=== PATIENT | female | born 1980 | race Caucasian/White ===

== ENCOUNTER 2017-10-04 15:18 | Emergency (ER) | payer OTHER ==
[2017-10-04] MEDS ORDERED: predniSONE 20 MG Tab PO ONE (16:05)
[2017-10-04] MEDS ORDERED: diphenhydrAMINE 50 MG Cap PO ONE (16:05)
[2017-10-04] MEDS ORDERED: Famotidine 20 MG Tab PO ONE (16:05)
--- NOTE | 2017-10-04 16:13 | EDM.PDOC ---
ED HPI GENERAL MEDICAL PROBLEM - General Chief Complaint: Skin Complaint Stated Complaint: COVERED IN HIVES Time Seen by Provider: 10/04/17 15:42 Source of Information: Reports: Patient History Limitations: Reports: No Limitations - History of Present Illness INITIAL COMMENTS - FREE TEXT/NARRATIVE: Patient is a 37-year-old female presents ED complaining of a generalized rash with urticaria to her face, neck, chest, abdomen, back and groin region. Patient states while traveling up to the [place] last night she had a itchy sensation. This was after eating a [employer] apple pie. Last evening there was no noticeable welts or rash present. States this morning after taking a hot shower the rash came about. She has some excessive itching noted to the sites. She denies any sore throat, difficulty swelling, shortness of breath, wheezing, cough, history of allergies or any additional complaints. States last night she wore a new shirt that had been washed 1. Denies any new lotions, medicines, sunscreens, environmental allergy exposure, swimming last night in the [place], or any additional complaints. She takes levothyroxine for hypothyroidism. She is not a diabetic. She has no additional past medical history. Denies being . 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: Neurological History: Reports: Seizure Other Neuro History: tubular sclerosis Endocrine/Metabolic History: Reports: Hypothyroidism Hematologic History: Reports: Blood Transfusion(s) - Past Surgical History GI Surgical History: Reports: Cholecystectomy Neurological Surgical History: Reports: Other (See Below) Other Neurological Surgeries/Procedures: Brain surgery Social & Family History - Family History Family Medical History: Noncontributory - Tobacco Use Smoking Status *Q: Never Smoker - Caffeine Use Caffeine Use: Reports: Coffee, Soda - Recreational Drug Use Recreational Drug Use: No ED ROS GENERAL - Review of Systems Review Of Systems: ROS reveals no pertinent complaints other than HPI. ED EXAM, SKIN/RASH Exam: See Below Exam Limited By: No Limitations General Appearance: Alert, WD/WN, No Apparent Distress Eye Exam: Bilateral Eye: Normal Inspection Ears: Hearing Grossly Normal Nose: Normal Inspection Throat/Mouth: Normal Voice, No Airway Compromise Head: Atraumatic, Normocephalic Neck: Supple, Non-Tender Respiratory/Chest: No Respiratory Distress, Lungs Clear, Normal Breath Sounds, No Accessory Muscle Use, Chest Non-Tender Cardiovascular: Normal Peripheral Pulses, Regular Rate, Rhythm Peripheral Pulses: 4+: Radial (L) GI/Abdominal: Normal Bowel Sounds, Soft, Non-Tender, No Organomegaly, No Distention Back Exam: Full Range of Motion Extremities: Non-Tender, No Pedal Edema, Normal Capillary Refill Neurological: Alert, Oriented, CN II-XII Intact, Normal Cognition, No Motor/ Sensory Deficits Psychiatric: Normal Affect, Normal Mood Skin: Warm, Dry, Intact Location, Skin: Face, Neck, Chest, Abdomen, Back, Pelvis, Upper Extremity, Right , Upper Extremity, Left, Lower Extremity, Right, Lower Extremity, Left, Generalized Characteristics: Urticarial Associated features: No: Warmth, Tenderness, Swelling, Induration, Scaling, Lymphangitis, Inflammation, Crusting, Weeping, Rough Course - Vital Signs Last Recorded V/S: Last Vital Signs Temp 98.2 F 10/04/17 17:05 Pulse 71 10/04/17 17:05 Resp 18 10/04/17 17:05 BP 135/68 10/04/17 17:05 Pulse Ox 100 10/04/17 17:05 - Orders/Labs/Meds Meds: Medications Discontinued Medications Generic Name Dose Route Start Last Admin Trade Name Hudsonq PRN Reason Stop Dose Admin Diphenhydramine HCl 50 mg 10/04/17 16:05 10/04/17 16:12 Benadryl PO 10/04/17 16:06 50 mg ONETIME ONE Administration Famotidine 40 mg 10/04/17 16:05 10/04/17 16:13 Pepcid PO 10/04/17 16:06 40 mg ONETIME ONE Administration Prednisone 40 mg 10/04/17 16:05 10/04/17 16:13 Prednisone PO 10/04/17 16:06 40 mg ONETIME ONE Administration - Re-Assessments/Exams Free Text/Narrative Re-Assessment/Exam: Order Benadryl 50 mg by mouth, Pepcid 40 mg by mouth, and prednisone 40 mg by mouth. 10/04/17 16:49 Reassessment, patient states the itching is decreasing as well as the redness to the rash to the face and arms. She continues to have no respiratory complaints and/or difficulty swallowing, scratchy throat, or swollen tongue sensation. She is ready be discharged home. The patient remained hemodynamically stable while under my care in the E.D. I discussed the concerning symptoms for which to return to the E.D. with the patient/family. The patient/family verbalized understanding. All questions were answered. Departure - Departure Time of Disposition: 16:50 Disposition: Home, Self-Care 01 Condition: Good Clinical Impression: Allergic reaction Qualifiers: Encounter type: initial encounter Qualified Code(s): T78.40XA - Allergy, unspecified, initial encounter - Discharge Information Prescriptions: predniSONE [Prednisone] 2 tab PO QAM #10 tablet Instructions: Allergies, Adult, [id number] Referrals: James Ayon MD [Primary Care Provider] - Forms: ED Department Discharge Additional Instructions: Take the prednisone as prescribed. In addition will have you take Pepcid 40 mg every day for 5 days. For itching take Benadryl 50 mg every 6 hours as needed. Keep a log of potential causes of the allergic reaction and refrain from exposure. Do not itch or take a hot shower since this will only worsen the rash. Please return to the ED if you develop worsening rash with difficulty swallowing, shortness of breath, swollen tongue, and/or scratchy throat. Suggest calling 911 to be transported to the closest ED if you experience any symptoms as such.
== END 2017-10-04 17:05 | disposition home or self-care (01) ==
LOC: JD.ED 15:18
DX: T78.40XA Allergy, unspecified, initial encounter (principal); E03.9 Hypothyroidism, unspecified; Z79.899 Other long term (current) drug therapy
CPT/HCPCS: 99283; A9270

== ENCOUNTER 2018-05-03 18:07 | Emergency (ER) | payer OTHER ==
[2018-05-03] MEDS ORDERED: Ondansetron 4 MG/2 ML SDV IVPUSH ONE (19:18)
[2018-05-03] MEDS ORDERED: Sodium Chloride 0.9% 1,000 ML IV STA (19:18)
[2018-05-03] MEDS ORDERED: Sodium Chloride 0.9% 10 ML Syringe FLUSH PRN (19:18)
[2018-05-03] MEDS ORDERED: diazePAM 5 MG/ML MDV IV ONE (19:19)
[2018-05-03] MEDS ORDERED: diazePAM 5 MG/ML-2ml Syringe ONE (19:55)
--- NOTE | 2018-05-03 20:31 | CT ---
Head CT Technique: Multiple axial sections through the brain were obtained. Intravenous contrast was not utilized. Comparison: No prior intracranial imaging. Findings: Ventricles along with basal cisterns and sulci over the convexities are within normal limits. Small ependymal calcifications are seen within the lateral ventricles which are likely incidental. No evidence of intracranial hemorrhage. No midline shift or mass effect is seen. Previous craniotomy is noted. Visualized sinuses are clear. Impression: 1. 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 2. Previous right-sided craniotomy defect. Please correlate as to etiology. 3. Nothing acute is otherwise appreciated on noncontrast head CT exam. Diagnostic code #3
--- NOTE | 2018-05-03 21:55 | EDM.PDOC ---
ED HPI GENERAL MEDICAL PROBLEM - General Chief Complaint: Gastrointestinal Problem Stated Complaint: VOMITING AND DIZZY Time Seen by Provider: 05/03/18 19:10 Source of Information: Reports: Patient, Family History Limitations: Reports: No Limitations - History of Present Illness INITIAL COMMENTS - FREE TEXT/NARRATIVE: The patient presents with dizziness, nausea and vomiting. She started with dizziness this morning and this evening she developed vomiting. She says the room is spinning. She has no headache, ear pain, ringing in her ears or hearing loss. She had dizziness like this before but it never lasted. 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 She has no chest pain, shortness of breath or abdominal pain. She has no numbness or weakness. She was at a [employer] last night but did not drink much. Onset: Gradual Duration: Hour(s): Severity: Severe Improves with: Reports: Immobilization Worsens with: Reports: Movement Associated Symptoms: Reports: Nausea/Vomiting. 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: Neurological History: Reports: Seizure Other Neuro History: tubular sclerosis Endocrine/Metabolic History: Reports: Hypothyroidism Hematologic History: Reports: Blood Transfusion(s) - Past Surgical History GI Surgical History: Reports: Cholecystectomy Neurological Surgical History: Reports: Other (See Below) Other Neurological Surgeries/Procedures: Brain surgery Social & Family History - Family History Family Medical History: Noncontributory - Tobacco Use Smoking Status *Q: Never Smoker - Caffeine Use Caffeine Use: Reports: None - Recreational Drug Use Recreational Drug Use: No ED ROS GENERAL - Review of Systems Review Of Systems: See Below Constitutional: Reports: No Symptoms HEENT: Reports: Vertigo Respiratory: Reports: No Symptoms Cardiovascular: Reports: No Symptoms Endocrine: Reports: No Symptoms GI/Abdominal: Reports: Nausea, Vomiting. Denies: Abdominal Pain, Diarrhea : Reports: No Symptoms Musculoskeletal: Reports: No Symptoms ED EXAM, GI/ABD - Physical Exam Exam: See Below Exam Limited By: No Limitations General Appearance: Alert, No Apparent Distress Eyes: Bilateral: Nystagmus Ears: Normal External Exam Nose: Normal Inspection Head: Atraumatic, Normocephalic Neck: Normal Inspection Respiratory/Chest: No Respiratory Distress, Lungs Clear, Normal Breath Sounds Cardiovascular: Regular Rate, Rhythm, No Edema, No Murmur GI/Abdominal Exam: Soft, Non-Tender, No Organomegaly, No Mass Back Exam: Normal Inspection Extremities: Normal Inspection Neurological: Alert, Oriented, No Motor/Sensory Deficits Course - Vital Signs Last Recorded V/S: Last Vital Signs Temp 97 F 05/03/18 19:00 Pulse 55 L 05/03/18 19:00 Resp 18 05/03/18 19:00 BP 195/102 H 05/03/18 19:00 Pulse Ox 97 05/03/18 19:00 - Orders/Labs/Meds Orders: Active Orders 24 hr Category Date Time Status Peripheral IV Care [RC] . DIRECTED Care 05/03/18 19:19 Active Sodium Chloride 0.9% [Saline Flush] Med 05/03/18 19:18 Active 10 ml FLUSH ASDIRECTED PRN ED Antiemetic Medication Reflex [OM.PC] Stat Oth 05/03/18 19:19 Ordered Peripheral IV Insertion Adult [OM.PC] Stat Oth 05/03/18 19:18 Ordered Medication Orders Sodium Chloride (Saline Flush) 10 ml FLUSH ASDIRECTED PRN PRN Reason: Keep Vein Open Last Admin: 05/03/18 19:40 Dose: 10 ml Labs: Laboratory Tests 05/03/18 05/03/18 05/03/18 Range/Units 18:41 18:41 18:41 WBC 8.11 (3.98-10.04) K/mm3 RBC 4.68 (3.98-5.22) M/mm3 Hgb 13.6 (11.2-15.7) gm/L Hct 40.5 (34.1-44.9) % MCV 86.5 (79.4-94.8) fl MCH 29.1 (25.6-32.2) pg MCHC 33.6 (32.2-35.5) g/dl RDW Std Deviation 40.6 (36.4-46.3) fL Plt Count 211 (182-369) K/mm3 MPV 11.5 (9.4-12.3) fl Neut % (Auto) 74.6 H (34.0-71.1) % Lymph % (Auto) 19.1 L (19.3-51.7) % [place] % (Auto) 5.2 (4.7-12.5) % Eos % (Auto) 0.5 L (0.7-5.8) Baso % (Auto) 0.4 (0.1-1.2) % Neut # (Auto) 6.05 (1.56-6.13) K/mm3 Lymph # (Auto) 1.55 (1.18-3.74) K/mm3 [place] # (Auto) 0.42 H (0.24-0.36) K/mm3 Eos # (Auto) 0.04 (0.04-0.36) K/mm3 Baso # (Auto) 0.03 (0.01-0.08) K/mm3 Sodium 139 (136-145) mEq/L Potassium 3.8 (3.5-5.1) mEq/L Chloride 103 (98-107) mEq/L Carbon Dioxide 27 (21-32) mEq/L Anion Gap 12.8 (5-15) BUN 13 (7-18) mg/dL Creatinine 0.9 (0.55-1.02) mg/dL Est Cr Clr Drug Dosing 99.72 mL/min Estimated GFR (MDRD) > 60 (>60) mL/min BUN/Creatinine Ratio 14.4 (14-18) Glucose 132 H (74-106) mg/dL Calcium 9.2 (8.5-10.1) mg/dL Total Bilirubin 0.2 (0.2-1.0) mg/dL AST 9 L (15-37) U/L ALT 25 (14-59) U/L Alkaline Phosphatase 68 (46-116) U/L Total Protein 7.6 (6.4-8.2) g/dl Albumin 4.0 (3.4-5.0) g/dl Globulin 3.6 gm/dL Albumin/Globulin Ratio 1.1 (1-2) HCG, Qual Negative (NEGATIVE) Meds: Medications Generic Name Dose Route Start Last Admin Trade Name Freq PRN Reason Stop Dose Admin Sodium Chloride 10 ml 05/03/18 19:18 05/03/18 19:40 Saline Flush FLUSH 10 ml ASDIRECTED PRN Administration Keep Vein Open Discontinued Medications Generic Name Dose Route Start Last Admin Trade Name Freq PRN Reason Stop Dose Admin Diazepam 5 mg 05/03/18 19:19 05/03/18 20:12 Valium IV 05/03/18 19:20 5 mg ONETIME ONE Administration Diazepam Confirm 05/03/18 19:55 Valium Administered 05/03/18 19:56 Dose 10 mg .ROUTE .STK-MED ONE Sodium Chloride 1,000 mls @ 1,000 mls/hr 05/03/18 19:18 05/03/18 19:39 Normal Saline IV 05/03/18 20:17 1,000 mls/hr .BOLUS STA Administration Meclizine HCl 25 mg 05/03/18 21:12 05/03/18 21:18 Antivert PO 05/03/18 21:13 25 mg ONETIME ONE Administration Ondansetron HCl 4 mg 05/03/18 19:18 05/03/18 19:40 Zofran IVPUSH 05/03/18 19:19 4 mg ONETIME ONE Administration - Re-Assessments/Exams Free Text/Narrative Re-Assessment/Exam: 05/03/18 21:53 I ordered an IV NS 1L bolus, zofran 4mg IV, valium, CT of her head and labs. The CT shows scattered ependymal calcifications within the lateral ventricles which are likely incidental. Previous right-sided craniotomy defect. Please correlate as to etiology. Nothing acute is otherwise appreciated on noncontrast head CT exam. She is better but not gone yet. I ordered some meclazine. That did help some. I will get her a prescription for that and zofran and refer her to Dr Cardozo our work manager. Departure - Departure Time of Disposition: 21:55 Disposition: Home, Self-Care 01 Condition: Good Clinical Impression: Vertigo - Discharge Information *PRESCRIPTION DRUG MONITORING PROGRAM REVIEWED*: No *COPY OF PRESCRIPTION DRUG MONITORING REPORT IN PATIENT RIC: No Prescriptions: Meclizine [Antivert] 25 mg PO Q6H PRN #20 tab PRN Reason: Dizziness Referrals: PCP,None [Primary Care Provider] - Additional Instructions: Take the antivert for dizziness. Take the zofran as needed for nausea and vomiting. Follow up with Dr Cardozo our work manager in our clinic. Call [phone]. Drink plenty of fluids. Please return if you are worse. - My Orders Last 24 Hours: My Active Orders 05/03/18 19:18 Sodium Chloride 0.9% [Saline Flush] 10 ml FLUSH ASDIRECTED PRN Peripheral IV Insertion Adult [OM.PC] Stat 05/03/18 19:19 Peripheral IV Care [RC] . DIRECTED ED Antiemetic Medication Reflex [OM.PC] Stat - Assessment/Plan Last 24 Hours: My Active Orders 05/03/18 19:18 Sodium Chloride 0.9% [Saline Flush] 10 ml FLUSH ASDIRECTED PRN Peripheral IV Insertion Adult [OM.PC] Stat 05/03/18 19:19 Peripheral IV Care [RC] . DIRECTED ED Antiemetic Medication Reflex [OM.PC] Stat
== END 2018-05-03 22:09 | disposition home or self-care (01) ==
LOC: JD.ED 18:07
DX: R42 Dizziness and giddiness (principal); I10 Essential (primary) hypertension; Z79.899 Other long term (current) drug therapy
CPT/HCPCS: 36415; 70450; 80053; 84703; 85025; 96361; 96374; 96375; 99284; A9270; J2405; J7040

== ENCOUNTER 2020-04-27 07:03 | Emergency (ER) | payer OTHER ==
[2020-04-27] MEDS ORDERED: Ondansetron 4 MG/2 ML SDV IVPUSH ONE ×2 (07:18→07:55)
--- NOTE | 2020-04-27 07:56 | EDM.PDOC ---
ED HPI GENERAL MEDICAL PROBLEM - General Chief Complaint: General Stated Complaint: [facility] Time Seen by Provider: 04/27/20 07:48 - History of Present Illness INITIAL COMMENTS - FREE TEXT/NARRATIVE: 39-year-old female presents the emergency room with vertigo. Patient has had vertigo in the past thought to be related to a inner ear infection. She had a CT at that time that was unremarkable for acute changes it does not sound like she had an MRI she did see audiology she did see an ear nose and throat doctor and went through physical therapy that actually helped out quite a bit. Patient had a history of craniotomy when she was much younger to have a tumor removed. Patient awoke around 2 AM this morning with severe dizziness this is aggravated by any change of position. Patient was brought in by EMS and received 4 mg of Zofran that appears to have not helped too much at the time she came into the emergency room. Dizziness gets worse she develops chills and severe nausea and vomiting. The patient does not believe she is . 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: Neurological History: Reports: Seizure Other Neuro History: tubular sclerosis Endocrine/Metabolic History: Reports: Hypothyroidism Hematologic History: Reports: Blood Transfusion(s) - Past Surgical History GI Surgical History: Reports: Cholecystectomy Neurological Surgical History: Reports: Other (See Below) Other Neurological Surgeries/Procedures: Brain surgery Social & Family History - Family History Family Medical History: No Pertinent Family History - Caffeine Use Caffeine Use: Reports: None ED ROS GENERAL - Review of Systems Review Of Systems: See Below Constitutional: Reports: No Symptoms HEENT: Reports: Vertigo. Denies: Ear Pain, Rhinitis, Throat Pain Respiratory: Reports: No Symptoms Cardiovascular: Reports: No Symptoms GI/Abdominal: Reports: Nausea, Vomiting. Denies: No Symptoms, Abdominal Pain : Reports: No Symptoms Musculoskeletal: Reports: No Symptoms Neurological: Reports: No Symptoms Psychiatric: Reports: No Symptoms Hematologic/Lymphatic: Reports: No Symptoms Immunologic: Reports: No Symptoms ED EXAM, GENERAL - Physical Exam Exam: See Below Exam Limited By: No Limitations General Appearance: Mild Distress (From the dizziness every time she tries to change her position) Eye Exam: Bilateral Eye: EOMI, PERRL Ears: Normal External Exam, Normal Canal, Hearing Grossly Normal, Normal TMs, Other (Slight pressure behind the tympanic membranes bilaterally slightly worse on the right compared to the left to the left is her known problem side) Nose: Normal Inspection, Normal Mucosa, No Blood Throat/Mouth: Normal Inspection, Normal Lips, Normal Teeth, Normal Gums, Normal Oropharynx, Normal Voice, No Airway Compromise Head: Atraumatic, Normocephalic Neck: Normal Inspection, Supple, Non-Tender, Full Range of Motion. No: Lymp hadenopathy (R), Thyromegaly Respiratory/Chest: No Respiratory Distress, Lungs Clear, Normal Breath Sounds Cardiovascular: Regular Rate, Rhythm, No Edema, No Murmur GI/Abdominal: Normal Bowel Sounds, Soft, Non-Tender Back Exam: Normal Inspection. No: CVA Tenderness (L), CVA Tenderness (R) Extremities: Normal Inspection, No Pedal Edema Course - Vital Signs Last Recorded V/S: Last Vital Signs Temp 36.8 C 04/27/20 07:07 Pulse 89 04/27/20 07:07 Resp 18 04/27/20 07:07 BP 175/93 H 04/27/20 07:07 Pulse Ox 98 04/27/20 07:07 - Orders/Labs/Meds Orders: Active Orders 24 hr Category Date Time Status Lactated Ringers [Ringers, Lactated] 1,000 ml Med 04/27/20 08:15 Active IV ASDIRECTED Medication Orders Lactated Ringer's (Ringers, Lactated) 1,000 mls @ 150 mls/hr IV ASDIRECTED ANTWAN Last Admin: 04/27/20 08:33 Dose: 150 mls/hr Documented by: SOHEILA Labs: Laboratory Tests 04/27/20 04/27/20 Range/Units 08:19 08:19 WBC 6.68 (3.98-10.04) K/mm3 RBC 4.85 (3.98-5.22) M/mm3 Hgb 12.9 (11.2-15.7) gm/dl Hct 40.3 (34.1-44.9) % MCV 83.1 D (79.4-94.8) fl MCH 26.6 (25.6-32.2) pg MCHC 32.0 L (32.2-35.5) g/dl RDW Std Deviation 40.7 (36.4-46.3) fL Plt Count 227 (182-369) K/mm3 MPV 11.3 (9.4-12.3) fl Neut % (Auto) 71.3 H (34.0-71.1) % Lymph % (Auto) 20.4 (19.3-51.7) % [place] % (Auto) 7.5 (4.7-12.5) % Eos % (Auto) 0.3 L (0.7-5.8) Baso % (Auto) 0.4 (0.1-1.2) % Neut # (Auto) 4.76 (1.56-6.13) K/mm3 Lymph # (Auto) 1.36 (1.18-3.74) K/mm3 [place] # (Auto) 0.50 H (0.24-0.36) K/mm3 Eos # (Auto) 0.02 L (0.04-0.36) K/mm3 Baso # (Auto) 0.03 (0.01-0.08) K/mm3 Sodium 138 (136-145) mEq/L Potassium 4.0 (3.5-5.1) mEq/L Chloride 105 (98-107) mEq/L Carbon Dioxide 26 (21-32) mEq/L Anion Gap 11.0 (5-15) BUN 15 (7-18) mg/dL Creatinine 1.1 H (0.55-1.02) mg/dL Est Cr Clr Drug Dosing 80.02 mL/min Estimated GFR (MDRD) 56 (>60) mL/min BUN/Creatinine Ratio 13.6 L (14-18) Glucose 125 H (74-106) mg/dL Calcium 9.1 (8.5-10.1) mg/dL Total Bilirubin 0.4 (0.2-1.0) mg/dL AST 11 L (15-37) U/L ALT 25 (14-59) U/L Alkaline Phosphatase 73 (46-116) U/L Total Protein 7.0 (6.4-8.2) g/dl Albumin 3.6 (3.4-5.0) g/dl Globulin 3.4 gm/dL Albumin/Globulin Ratio 1.1 (1-2) Meds: Medications Generic Name Dose Route Start Last Admin Trade Name Freq PRN Reason Stop Dose Admin Lactated Ringer's 1,000 mls @ 150 mls/hr 04/27/20 08:15 04/27/20 08:33 Ringers, Lactated IV 150 mls/hr ASDIRECTED ANTWAN Administration Discontinued Medications Generic Name Dose Route Start Last Admin Trade Name Freq PRN Reason Stop Dose Admin Lorazepam 0.5 mg 04/27/20 09:47 04/27/20 09:52 Ativan IVPUSH 04/27/20 09:48 0.5 mg ONETIME ONE Administration Ondansetron HCl 4 mg 04/27/20 07:18 04/27/20 07:23 Zofran IVPUSH 04/27/20 07:19 4 mg ONETIME ONE Administration Ondansetron HCl 4 mg 04/27/20 07:55 04/27/20 07:59 Zofran IVPUSH 04/27/20 07:56 4 mg ONETIME ONE Administration - Re-Assessments/Exams Free Text/Narrative Re-Assessment/Exam: 04/27/20 09:13 I have given and the patient now is 75% better the patient 2 more doses of Zofran for total of 12 mg thus far. The patient is a 75% better but she does not want to shake her head she can move her head slowly. Her blood pressure is noted to be quite elevated still with systolics in the 170s to 180s. I have discussed the situation with radiology and will not be able to get an MRI on her. I will go ahead and check a head CT. 04/27/20 12:22 Patient has come down to the 160s the patient is doing better she still having some dizziness when she tries to ambulate however it is manageable. Head CT is unremarkable if further imaging needs to be done strong consideration for an MRI needs to be obtained the patient will be started on meclizine 1 or 2 every 6 hours as needed the patient understands that the more she takes it may prolong the nature of this illness. She will start doing simple exercises again. I strongly recommend she follow-up with her regular physician and her clinical data research this next week. I have also cautioned her against driving until she is significantly better. Departure - Departure Time of Disposition: 12:23 Disposition: Home, Self-Care 01 Clinical Impression: Vertigo - Discharge Information Forms: ED Department Discharge Additional Instructions: Return to the emergency room with any questions problems or worsening symptoms. As we discussed start gentle exercises for your vertigo. I have given you prescription for meclizine take 1 or 2 every 6 hours, only if absolutely essential. Follow-up with your regular healthcare provider early this next week. Discuss getting back into physical therapy. Also discuss your blood pressure. Follow- up with your clinical data research this next week. If further imaging is needed consider getting an MRI. Sepsis Event Note (ED) - Evaluation Sepsis Screening Result: No Definite Risk - Focused Exam Vital Signs: Vital Signs Temp Pulse Resp BP Pulse Ox 04/27/20 07:07 36.8 C 89 18 175/93 H 98 - My Orders Last 24 Hours: My Active Orders 04/27/20 08:15 Lactated Ringers [Ringers, Lactated] 1,000 ml IV ASDIRECTED - Assessment/Plan Last 24 Hours: My Active Orders 04/27/20 08:15 Lactated Ringers [Ringers, Lactated] 1,000 ml IV ASDIRECTED
[2020-04-27] MEDS ORDERED: Lactated Ringers 1,000 ML IV SCH (08:15)
[2020-04-27] MEDS ORDERED: LORazepam 2 MG/ML SDV IVPUSH ONE (09:47)
--- NOTE | 2020-04-27 10:05 | CT ---
Head CT Technique: Multiple axial sections through the brain were obtained. Intravenous contrast was not utilized. Reconstructed coronal and sagittal images were obtained. Comparison: Prior head CT study of 05/03/18. Findings: Small calcifications are seen next to the right lateral ventricular body as well as around both frontal horns of the lateral ventricle. Ventricular size is minimally prominent. No abnormal parenchymal densities are seen. Previous right upper craniotomy is noted. Mild decreased extra-axial density is noted next to the surgical region believed to be chronic. Visualized mastoid sinuses and visualized paranasal sinuses show nothing acute. Impression: 1. Calcifications next to the ventricles which are likely chronic. Prior right upper craniotomy is noted. Mild decreased extra-axial density is noted next to the surgical region believed to be chronic. 2. No acute parenchymal abnormality is appreciated. Note: Findings remain fairly similar to prior head CT exam. Diagnostic code #2
== END 2020-04-27 12:41 | disposition home or self-care (01) ==
LOC: JD.ED 07:03
DX: R42 Dizziness and giddiness (principal); I10 Essential (primary) hypertension; E03.9 Hypothyroidism, unspecified; Z79.899 Other long term (current) drug therapy
CPT/HCPCS: 36415; 70450; 80053; 85025; 96374; 96375; 96376; 99285; J2060; J2405; J7120; 99284